=== PATIENT | female | born 1970 ===

== ENCOUNTER 2018-02-22 11:51 | Outpatient (CLI) | payer OTHER ==
[~2018-02-22] VITALS: Ht 152.4 cm; Wt 79.4 kg
== END 2018-02-22 12:10 | disposition home or self-care (01) ==
LOC: OFIC 805 11:51
DX: H62.43 Otitis externa in other diseases classified elsewhere, bilateral (principal); H61.23 Impacted cerumen, bilateral; B36.9 Superficial mycosis, unspecified

== ENCOUNTER 2018-03-08 08:57 | Outpatient (CLI) | payer OTHER ==
[~2018-03-08] VITALS: Ht 152.4 cm; Wt 74.8 kg
== END 2018-03-08 09:15 | disposition home or self-care (01) ==
LOC: OFIC 805 08:57
DX: B36.8 Other specified superficial mycoses (principal); H62.43 Otitis externa in other diseases classified elsewhere, bilateral